=== PATIENT | female | born 1955 | race African-American/Black ===

== ENCOUNTER 2017-01-11 16:30 | Emergency (ER) | payer OTHER ==
[2017-01-11] MEDS ORDERED: ONDANSETRON HCL/PF 4 MG/ 2ML VIAL ONE (16:38)
[2017-01-11] MEDS ORDERED: 0.9 % SODIUM CHLORIDE 1,000 ML IV ONE (16:39)
[2017-01-11] MEDS: 0.9 % SODIUM CHLORIDE 1,000 ML IV ONE (16:45)
[2017-01-11] MEDS: ONDANSETRON HCL/PF 4 MG/ 2ML VIAL IVP ONE ×2 (16:45→20:02)
[2017-01-11 16:57] LABS: BASOPHILS % 0.3 (0.0-1.5); EOSINOPHILS % 1.2 % (0.0-6.8); MEAN CORPUSCULAR VOLUME 87.1 fl (80.0-100.0); MONOCYTES % 3.1 % (0.0-11.0); NEUTROPHILS # 10.8 # k/uL (1.4-7.7)
[2017-01-11 17:08] LABS: eGFR (African) > 60; eGFR (Non-African) > 60
[2017-01-11] MEDS: MAG HYDROX/AL HYDROX/SIMETH 30 ML, Lidocaine 2%Visc 15ml 20 MG, PHENobarb/HYOSCY/ATROPI... PO ONE ×3 (17:35)
[2017-01-11] MEDS ORDERED: MAG HYDROX/AL HYDROX/SIMETH 30 ML UDC PO ONE (17:41)
[2017-01-11] MEDS ORDERED: Lidocaine 2%Visc 15ml 20 MG/ML UDC ONE (17:41)
--- NOTE | 2017-01-11 20:08 | ED Physician Documentation ---
GI Bleed - HISTORIAN Historian: patient, other (family) - HPI Chief Complaint: General Adult Additional Information: ate ham from 3 days ago onset approx 10 minutes of n/e/d est 8-10 times Onset: minutes (30 min ago ate ham-3 days old 10 min later profuse diaphoresis n.e.d. well prior--ate smame ham 3 days ago w/no ill effects-it had been refrigerated) Timing: gradual onset, still present (est 10-15 emesis and diarrhea - poss dark blood w/brown stool) Severity: moderate - Associated Symptoms Description of Stools: dark stools Abdominal Pain: cramping, moderate, severe Emesis Description: other (contained ham chunks) Other Related Symptoms: nausea, vomiting - ROS CONST: denies: recent illness, fever, chills CVS/RESP: none, chest pain. denies: shortness of breath NEURO/PSYCH: anxiety. 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 suvivor kidney stones gi upset udo- takes omiprazole) Surgeries/Procedures: hysterectomy, other (breast back appy) Allergies/Adverse Reactions: Allergies Allergy/AdvReac Type Severity Reaction Status Date / Time morphine Allergy Verified 01/11/17 16:51 penicillin G Allergy Verified 01/11/17 16:51 Home Medications: Ambulatory Orders Medication Instructions Recorded Omeprazole [Prilosec] 20 mg PO DAILY 01/11/17 - SOCIAL HX Smoking History: non-smoker Alcohol Use: none Drug Use: none - FAMILY HX Family History: none - VITAL SIGNS Vital Signs: Vital Signs Temp Pulse Resp BP Pulse Ox 78 20 125/77 99 01/11/17 16:30 01/11/17 16:30 01/11/17 16:30 01/11/17 16:30 - REVIEWED ASSESSMENTS Nursing Assessment Reviewed: Yes Vitals Reviewed: Yes ED Results Lab/Radiology - Lab Results Lab Results: Lab Results 01/11/17 01/11/17 01/11/17 16:50 16:50 16:50 WBC 13.90 K/ul H K/ul (4.00-12.00) RBC 4.32 M/ul M/ul (3.90-5.20) Hgb 11.7 g/dL L g/dL (12.0-16.0) Hct 37.7 % % (34.5-46.5) MCV 87.1 fl fl (80.0-100.0) MCH 27.0 pg L pg (28.0-34.0) MCHC 31.0 g/dL g/dL (30.0-36.0) RDW 14.9 % H % (11.3-14.3) Plt Count 268 K/mm3 K/mm3 (130-400) Neut % (Auto) 78.2 % % (39.0-79.0) Lymph % (Auto) 16.8 % % (16.0-50.0) Valley % (Auto) 3.1 % % (0.0-11.0) Eos % (Auto) 1.2 % % (0.0-6.8) Baso % (Auto) 0.3 (0.0-1.5) Neut # (Auto) 10.8 # k/uL H # k/uL (1.4-7.7) Lymph # (Auto) 2.3 # k/uL # k/uL (0.6-4.0) Valley # (Auto) 0.4 # k/uL # k/uL (0.0-0.9) Eos # (Auto) 0.2 # k/uL # k/uL (0.0-0.6) Baso # (Auto) 0.0 # k/uL # k/uL (0.0-0.5) Reactive Lymphs % 0.5 % % (0.0-5.0) Reactive Lymphs # 0.1 # k/uL # k/uL (0.0-0.8) Sodium 141 mmol/L mmol/L (136-145) Potassium 3.8 mmol/L mmol/L (3.5-5.0) Chloride 107 mmol/L mmol/L (98-110) Carbon Dioxide 29 mmol/L mmol/L (20-32) BUN 14 mg/dL mg/dL (10-26) Creatinine 0.8 mg/dL mg/dL (0.4-1.5) Estimated Creat Clear 141 Est GFR ( Amer) > 60 (60 - ) Est GFR (Non-Af Amer) > 60 (60 - ) Glucose 121 mg/dL H mg/dL (70-99) Calcium 10.2 mg/dL mg/dL (8.5-10.5) Total Bilirubin 0.2 mg/dL mg/dL (0.2-1.2) AST 25 U/L U/L (0-41) ALT 19 U/L U/L (0-45) Alkaline Phosphatase 115 U/L U/L (46-116) Total Protein 8.3 g/dL g/dL (6.0-8.5) Albumin 4.7 g/dL g/dL (3.0-5.5) Amylase 91 U/L U/L (20-104) - Orders Orders: ED Orders Category Date Time Status Place IV Lock 1T Care 01/11/17 16:45 Active AMYLASE NOW Lab 01/11/17 16:50 Completed CBC/PLATELET/DIFF NOW Lab 01/11/17 16:50 Completed CMP NOW Lab 01/11/17 16:50 Completed LIPASE NOW Lab 01/11/17 16:50 Stop Req 0.9 % Sodium Chloride [Normal Saline] 1,000 ml Med 01/11/17 16:39 Discontinued IV .STK-MED 0.9 % Sodium Chloride [Normal Saline] 1,000 ml Med 01/11/17 16:45 Discontinued IV Q1H Lidocaine 2%Visc 15ml [Xylocaine] Med 01/11/17 17:41 Discontinued 600 mg .ROUTE .STK-MED ONE Mag Hydrox/Al Hydrox/Simeth [Mylanta] Med 01/11/17 17:41 Discontinued 30 ml PO .STK-MED ONE Mag Hydrox/Al Hydrox/Simeth [Mylanta] 30 ml Med 01/11/17 17:26 Discontinued Lidocaine 2%Visc 15ml [Xylocaine] 20 mg PHENobarb/HYOSCY/ATROPINE/SCOP [] 10 ml PO NOW Ondansetron HCl/Pf [Zofran 4 mg/2 ml] Med 01/11/17 16:38 Discontinued 4 mg .ROUTE .STK-MED ONE Ondansetron HCl/Pf [Zofran 4 mg/2 ml] Med 01/11/17 16:45 Discontinued 4 mg IVP NOW ONE Ondansetron HCl/Pf [Zofran 4 mg/2 ml] Med 01/11/17 20:01 Discontinued 4 mg IVP NOW ONE Abdominal Pain Physical Exam - Physical Exam General Appearance: moderate distress EENT: eye inspection normal NECK: normal inspection, thyroid normal RESPIRATORY: no resp distress, chest non-tender, breath sounds normal CVS: reg rate & rhythm, heart sounds normal ABDOMEN: soft, non-tender SKIN: warm/dry, normal color. No: cyanosis, diaphoresis, jaundice EXTREMITIES: non-tender, normal range of motion, no evidence of injury, no edema NEURO: oriented X3, motor nml, sensation nml, mood/affect nml, cognition normal Vital Signs: Vital Signs Temp Pulse Resp BP Pulse Ox 78 20 125/77 99 01/11/17 16:30 01/11/17 16:30 01/11/17 16:30 01/11/17 16:30 Discharge Clincal Impression: food poisoning-ham Referrals: Fred Branch MD [Primary Care Provider] - 2 Days Home Medications: Ambulatory Orders Omeprazole [Prilosec] 20 mg PO DAILY 01/11/17 Comments: home gatoraid 2/3 water-1/3 for oral rehydration tx Condition: Good Disposition: 01 HOME, SELF-CARE Decision to Admit: NO Decision Time: 20:03
[2017-01-11 20:21] VITALS: BP 134/78
[2017-01-12 02:21] LABS: LIPASE 27 U/L (13-60)
== END 2017-01-11 20:20 | disposition home or self-care (01) ==
LOC: ED 16:30
DX: T62.8X1A Toxic effect of other specified noxious substances eaten as food, accidental (unintentional), initial encounter (principal); X58.XXXA Exposure to other specified factors, initial encounter; Y93.9 Activity, unspecified; Y99.9 Unspecified external cause status
CPT/HCPCS: 80053; 82150; 83690; 85025; 96361; 96374; 96376; 99283; J2405; A9270-GY; J7030; S1016

== ENCOUNTER 2017-04-03 10:35 | Day surgery (SDC) | payer OTHER ==
[~2017-04-03 10:35] MED LIST: LACTATED RINGERS 1,000 ML IV.SOLN IV ONE; PROPOFOL 200 MG/20 ML VIAL IV ONE; PROPOFOL 500 MG/50 ML VIAL IV ONE; SALINE FLUSH 10 ML DISP.SYRIN IVF ONE
--- NOTE | 2017-04-04 15:52 | GI Report ---
REFERRING PHYSICIAN: Dr. Fred Branch RATE INSERTER: Aleixs Suh MD PROCEDURE MEDICATION: Propofol as per anesthesia. INDICATIONS: This 62-year-old woman is referred for her first colonoscopy. She has had blood in her stool. She has also had breast cancer and surgery. She has never had a colonoscopy before. She is 5 feet 7 inches and weighs 104 kilograms and carries that weight centrally. She has had previous chemotherapy for breast cancer and a bilateral mastectomy, complete hysterectomy, appendectomy, and a kidney stone. PROCEDURE PERFORMED: Colonoscopy and polypectomies. PROCEDURE: An Olympus video colonoscope was advanced through the rectum. She does have a redundant colon and some diverticular disease and there is a soft bulky mass in the sigmoid at about 30 cm that actually fills most of the lumen. We were able to get the scope passed it and advanced all the way to the cecum. The appendiceal orifice and terminal ileum were normal. On slow withdrawal, the cecum, ascending colon, and transverse colon with no obvious intraluminal lesions noted. Descending colon, again, no obvious intraluminal lesions noted until you get to this last kind of a villous-appearing bulky mass at about 30 cm in the sigmoid. The mass appears to be probably 2.5 cm to 3 cm in size. We debulked 1 large piece removed with a scope and took a second and a third, so we appeared to debulk about 80% of the lesion. We did put a tattoo present there. You can get by the lesion easily now, but after 3 cuttings, there was a little bit of blood and the prep was not perfect to be able to bring it down closer to the base. Patient tolerated the procedure well. FINDINGS: Large 3 cm bulky lesion in the sigmoid that was piecemealed in 3 pieces, possibly 80% removed. RECOMMENDATIONS: 1. Would stay on just a clear liquid diet today. 2. Pending the pathology, if there is carcinoma in situ, then I would refer her to a colorectal surgeon about sigmoid resection around there. If it is perfectly benign and no high-grade dysplasia, then patient still needs either a sigmoid resection routed or a repeat colonoscopy after a several day prep in 2 to 3 months to see if we can remove the rest of it. cc: Dr. Fred NICHOLSON
== END 2017-04-03 10:36 ==
LOC: OPSURG 10:35
PROVIDERS: ATTEND Internal Medicine Gastroenterology
DX: D12.5 Benign neoplasm of sigmoid colon (principal); K92.1 Melena; Z85.3 Personal history of malignant neoplasm of breast
CPT/HCPCS: 88305; J2704; J7120; 45381; 45385; S1016

== ENCOUNTER 2017-04-13 09:45 | Outpatient (CLI) | payer OTHER | END 2017-04-13 09:46 | LOC: OUT 09:45 | PROVIDERS: ATTEND Colon & Rectal Surgery | DX: D37.4 Neoplasm of uncertain behavior of colon (principal) | CPT/HCPCS: G0463 ==

== ENCOUNTER 2018-02-13 07:09 | Outpatient (CLI) | payer OTHER ==
[2018-02-13 07:36] LABS: BASOPHILS % 0.7 (0.0-1.5); EOSINOPHILS % 2.5 % (0.0-6.8); MEAN CORPUSCULAR HEMOGLOBIN 27.2 pg (28.0-34.0); MEAN CORPUSCULAR VOLUME 90.1 fl (80.0-100.0); NEUTROPHILS # 3.4 # k/uL (1.4-7.7)
[2018-02-13 08:15] LABS: eGFR (African) > 60; eGFR (Non-African) > 60
== END 2018-02-13 07:10 ==
LOC: LAB 07:09
PROVIDERS: ATTEND Physician Assistant
DX: M25.561 Pain in right knee (principal); R05 Cough; I10 Essential (primary) hypertension
CPT/HCPCS: 36415; 80053; 85025

== ENCOUNTER 2018-02-14 12:16 | Outpatient (CLI) | payer OTHER ==
--- NOTE | 2018-02-14 18:16 | Diagnostic Imaging Report ---
JAYESH VAZQUEZ [facility] [address] [facility] [address] [address] Report Submission Date: Feb 14, 2018 1:07:51 PM CDT Patient Study Name: PAULY STEELE Date: Feb 14, 2018 12:34:31 PM CDT Modality Type: DX Gender: F Description: LOWER EXTREMITY : 55 Institution: [facility] Physician: JAYESH VAZQUEZ Examination: Plain film knees History: BILAT KNEES, PAIN IN KNEES FOR SEVERAL YEARS, WORSENING, CONSTANT KNEE PAIN X6 MONTHS, NO KNOWN INJURY (Hx) Findings: 3 views of the right and left knees demonstrates osteopenia. Tibial spine articular and patellar spurring. No fracture. No dislocation. No joint effusion. Medial joint space narrowing. No soft tissue irregularity. Impression: Extensive degenerative changes. No evidence for fracture. Electronically signed on Feb 14, 2018 1:07:51 PM CDT by: Que NICHOLSON
--- NOTE | 2018-02-14 18:16 | Diagnostic Imaging Report ---
JAYESH VAZQUEZ [facility] [address] [facility] [address] [address] Report Submission Date: Feb 14, 2018 1:05:47 PM CDT Patient Study Name: PAULY STEELE Date: Feb 14, 2018 12:33:36 PM CDT Modality Type: DX Gender: F Description: CHEST : 55 Institution: [facility] Physician: JAYESH VAZQUEZ Examination: PA and lateral chest. History: Evaluate lung cooley. CXR, PRODUCTIVE COUGH X3-4 MONTHS (Hx) Comparison exam: None provided. Findings: PA lateral chest demonstrate a normal cardiac and mediastinal silhouette. Mildly tortuous aorta. No focal infiltrate. No blunting of the costophrenic margins. Osseous structures are appropriate for age. Impression: No acute pulmonary process. Electronically signed on Feb 14, 2018 1:05:47 PM CDT by: Que NICHOLSON
== END 2018-02-14 12:17 ==
LOC: RAD 12:16
PROVIDERS: ATTEND Physician Assistant
DX: M25.561 Pain in right knee (principal); R05 Cough; I10 Essential (primary) hypertension
CPT/HCPCS: 71046